=== PATIENT | female | born 1990 | race African-American/Black ===

== ENCOUNTER 2023-01-02 23:50 | Emergency (ER) | payer OTHER ==
--- NOTE | 2023-01-03 00:40 | NUR ---
CALLED PT IN [place]; UNABLE TO LOCATE
--- NOTE | 2023-01-03 00:54 | NUR ---
CALLED PT IN [place]; UNABLE TO LOCATE
== END 2023-01-03 00:40 | disposition left against medical advice (07) ==
LOC: MED 23:50
DX: N93.9 Abnormal uterine and vaginal bleeding, unspecified (principal); Z53.21 Procedure and treatment not carried out due to patient leaving prior to being seen by health care provider